=== PATIENT | female | born 1990 | race Two or more races ===

== ENCOUNTER 2024-11-09 18:15 | Emergency (ER) | payer MEDICAID, SELFPAY ==
[2024-11-09 18:17] VITALS: BMI 27.1
[2024-11-09 18:54] VITALS: BP 109/75; PULSE 100; RESP 18; TEMP 37; O2SAT 95
--- NOTE | 2024-11-09 19:04 | PD.EDADULT ---
ED General RME/HPI General Chief complaint: Neuro Symptoms/Deficit Stated complaint: BILATERAL HAND NUMBNESS X3 HRS Time Seen by Provider: 11/09/24 18:46 Arrival date/time: 11/09/24 18:15 CC: Palpitations lightheaded dizziness followed by syncope. HPI onset several hours ago patient refused to come in by ambulance secondary to running to filler picker her children from school. Prior history of similar events. Patient admits that she had cramping numbness and tingling in her face particular around her mouth and in her hands. Patient states most of her symptoms at send resolved feels that her heart rate was up in the 160s. Patient is awake alert oriented anxious and admits she is under a lot of stress secondary to family issues. Patient denies fever painful urination bloody urination nausea vomiting or diarrhea. Related Data Home Medications ?Medication ?Instructions ?Recorded ?Confirmed vits [id number] fum 1 tab PO QDAY 11/25/19 11/25/19 27 mg iron-folic acid 800 mcg tablet ( Vitamin) Previous Rx's ?Medication ?Instructions ?Recorded docusate sodium 100 mg capsule 100 mg PO BID #60 caps 08/13/21 (Colace) ibuprofen 800 mg tablet 800 mg PO Q6H PRN pain #90 tabs 08/13/21 lanolin 50 % topical ointment 1 applic topical TID PRN skin 08/13/21 irritation #15 tubes cephalexin 500 mg capsule 500 mg PO BID #14 caps 11/09/24 Allergies Allergy/AdvReac Type Severity Reaction Status Date / Time No Known Allergies Allergy Verified 11/09/24 18:21 Review of Systems Review of Systems Narrative Review of Systems: GEN: No fever, no chills, no weight loss EYES: No discharge, no visual changes, no pain HEENT: No ear pain, no congestion, no sore throat PULM: No shortness of breath, no cough, no congestion CV: No chest pain, no dyspnea on exertion, no palpitations GI: No nausea, no vomiting, no diarrhea, no pain, no constipation : No frequency, no urgency, no dysuria MUSC/SKEL: No joint pain, no back pain SKIN: No rash PSYCH: No hallucinations, no depression HEME/LYMPH: No easy bleeding or bruising tendencies NEURO: No weakness, no headache Past Medical History Past Medical History NEUROLOGIC: Negative Neurological Disorders CARDIAC: Negative Cardiac Disorders, Myocardial Infarction, Cardiac Arrhythmia, Atrial Fibrillation, Angina, Heart Murmur, Coronary Artery Disease, Atherosclerotic Heart Disease, Peripheral Vascular Disease, Hypercholesterolemia, Aneurysm, Congestive Heart Failure, Congenital Heart Disease, Valvular Heart Disease, Rheumatic Fever, Cardiomyopathy, Edema, Pericarditis, Cellulitis, Deep Vein Thrombosis, Hypertension, Hypotension or Varicose Veins RESPIRATORY: Negative Chronic Obstructive Pulmonary Disease (COPD) GASTROINTESTINAL: Negative Gastrointestinal Disorders, Hepatitis or Colorectal Cancer GENITOURINARY: Negative Genitourinary Disorders, Renal Disease or Prostate Cancer REPRODUCTIVE: Negative Breast Cancer, Endometriosis, Pelvic Inflammatory Disease, Previous Pregnancies, Testicular Cancer or Uterine Prolapse MUSCULOSKELETAL: Negative Musculoskeletal Disorders, Bone Cancer or Carpal Tunnel Syndrome ENDOCRINE: Positive Endocrine Disorders and Hypoglycemia; Negative Diabetes Mellitus Type 1 or Diabetes Mellitus Type 2 HEMATOLOGIC: Positive Blood Disorders and Anemia OTHER HISTORY: Positive Organ Transplant and Chicken Pox; Negative Autoimmune Disease, Blood Transfusions, Blood Transfusion Reaction, Anesthesia Reactions, Chemotherapy, Hyperbaric Therapy, MRSA, VRSA, Vancomycin-Resistant Enterococci, Human Immunodeficiency Virus (HIV), Measles, Mumps, Rubella ([place] Measles), Pertussis, Clostridium Difficile, Breast Cancer, Cervical Cancer, Colorectal Cancer, Lung Cancer, Ovarian Cancer, Prostate Cancer or Testicular Cancer Family History FAMILY HISTORY: Positive Family Cancer; Negative Family Psychiatric Problems, Family Respiratory Disorders, Family Cardiac Disorders, Family Gastrointestinal Problems, Family Surgery or Family Anesthesia Reaction Surgical History SURGICAL: Positive Organ Transplant; Negative Cardiac Surgery, Pacemaker, Endocrine Surgery, Ear Surgery, Abdominal Surgery, Nephrectomy, Joint Replacement, Arthroscopy, Neurologic Surgery, Brain Shunt, Mastectomy, Lumpectomy, Hysterectomy, Tubal Ligation or Section Social History SMOKING STATUS: Never smoker SECOND HAND EXPOSURE: No ED Exam Narrative Physical exam: [General: Thin, but not emaciated not in any acute distress Head normocephalic HEENT: Within acceptable limits Neck is supple nontender Chest equal chest rise nontender to palpation Respiratory: Clear to auscultation no wheezes crackles or rubs CV: Rate rhythm is regular, tachycardia, no murmurs rubs or clicks Abdomen is soft nontender no masses positive bowel sounds all 4 quadrants Back: No CVA tenderness no spinous process tenderness from cervical spine thoracic and lumbar spine Skin: Intact no petechiae rash induration ulceration or crepitus Extremities: Moving all extremity against resistance cap refill less than 2 seconds neurosensory intact Neuro: Awake alert oriented x3 Glascow coma 15 no focal deficits] Course Quality Measures none Orders Category Date Time Status CBC Stat Lab 11/09/24 19:03 Ordered Drug Screen,Urine Stat Lab 11/09/24 19:03 Ordered HCG Qualitative,Urine Stat Lab 11/09/24 19:03 Ordered Urinalysis Stat Lab 11/09/24 19:03 Ordered Vital Signs Vital signs: Vital Signs Temperature 98.6 F 11/09/24 18:54 Pulse Rate 100 11/09/24 18:54 Respiratory Rate 18 11/09/24 18:54 Blood Pressure 109/75 11/09/24 18:54 Pulse Oximetry (%) 95 11/09/24 18:54 Oxygen Delivery Method Room Air 11/09/24 18:54 [facility] Patient data External records reviewed:: [facility] previous records Clinical information provided by:: patient Social determinants that could affect healthcare access:: none Patient has the following chronic illnesses:: Anxiety How is presenting disease/condition affected by chronic disease/condition?: exacerbated by Evaluation data The following diagnostics were reviewed and interpreted by me:: lab results Lab and/or radiology exams considered but not ordered:: Patient eloped Interpretation Summary: Patient eloped Medications Medications considered but not ordered:: None Medication administrations:: None Consultations Consultation(s) initiated? (list below): No Diagnosis Differential Diagnosis ED Complaint MDM: Syncope anxiety somatizations Most likely diagnosis given after review of the tests above:: Finger laceration Admission Indicated Admission indicated?: not indicated Explain why admission is indicated or not indicated:: Stable for outpatient follow-up Admission Request Was there a request for admission?: No Disposition Plan Disposition Plan: Discharge Discharge Attestation Discharge Attestation: The patient and all family members were given an opportunity to ask questions and understood the discharge instructions. Discharge instructions specifically effects, indications for sooner follow up or return to the emergency department, and the expected course of current diagnosis. Patient condition: Stable Medical Decision Making Differential Diagnosis Differential Diagnosis: Syncope anxiety somatizations Discharge Plan Plan Patient Disposition: Elopement Patient condition on transfer: Stable Prescriptions/Referrals Prescriptions/Med Rec: New cephalexin 500 mg capsule 500 mg PO BID Qty: 14 0RF No Action Vitamin 27 mg iron- 800 mcg Tablet 1 tab PO QDAY ibuprofen 800 mg tablet 800 mg PO Q6H MDD 4 PRN (Reason: pain) Qty: 90 0RF docusate sodium [Colace] 100 mg capsule 100 mg PO BID Qty: 60 0RF lanolin 50 % ointment 1 applic topical TID PRN (Reason: skin irritation) Qty: 15 0RF Referrals: iBlly Szymanski MD [Physician] - In 1 week No Primary/Family,Physician [Primary Care Provider] - In 1 week Problem List Clinical Impression: Syncope, Hyperventilation Patient/Caregiver Discharge Instructions Education Materials: Hyperventilation Syndrome, ED Dizziness or Syncope ... Additional Instructions: Keep the site clean and dry if there are signs of infection which includes redness swelling and pus return the emergency room for reevaluation make sure you take the antibiotics until completely gone. Sutures out in 14 days. Print Language: British Stand Alone Forms: [employer] Award Info., Work/School Release JYOTI/DON Supervising Physician SEAN Supervising Physician: Richie Barber ENP
--- NOTE | 2024-11-09 19:29 | PC.NURSE ---
pt stated that she was going to leave and walked out of E.R.
--- NOTE | 2024-11-09 21:20 | PC.NURSE ---
CALLED PATIENT IN THE LOBBY AND OUTSIDE, NO ANSWER RECEIVED.
--- NOTE | 2024-11-09 21:51 | PC.NURSE ---
CALLED PATIENT IN THE LOBBY AND OUTSIDE, NO ANSWER RECEIVED.
== END 2024-11-09 21:51 | disposition left against medical advice (07) ==
PROVIDERS: Emergency Provider Emergency Medicine
DX: R06.4 Hyperventilation (principal); R55 Syncope and collapse; Z53.29 Procedure and treatment not carried out because of patient's decision for other reasons
CPT/HCPCS: 80307; 81001; 81025; 85025; 99281